=== PATIENT | male | born 1950 | race Hispanic/Latino ===

== ENCOUNTER 2018-02-02 08:30 | Observation (INO) | payer MEDICARE, OTHER ==
[2018-02-01 12:53] VITALS: BP 123/75
[2018-02-02] VITALS (21 sets, daily range): BP systolic 118–164; BP diastolic 56–96
[~2018-02-02] VITALS: Ht 182.9 cm; Wt 116.8 kg
[~2018-02-02 08:30] MED LIST: ASPI-555 PO; BENA10TA10 PO; CARV12.511 PO; ERGO500014 PO; METF-444 PO; PRAV40TA3 PO
[2018-02-02] MEDS: CEFAZOLIN SODIUM 1 GM VIAL IVP SCH ×2 (11:00→12:20)
[2018-02-02] MEDS ORDERED: SODIUM CHLORIDE 0.9% 1000ML 1,000 ML IV ONE (11:05)
[2018-02-02] MEDS ORDERED: MIDAZOLAM HCL 1 MG/ML 2ML VIAL ONE (11:47)
[2018-02-02] MEDS ORDERED: CEFAZOLIN SODIUM 1 GM VIAL ONE (12:07)
[2018-02-02] MEDS ORDERED: GLYCOPYRROLATE 1 MG/5 ML SYRINGE ONE ×2 (12:11→13:27)
[2018-02-02] MEDS ORDERED: DEXAMETHASONE SOD PHOSPHATE 10MG/ML 1ML VIAL ONE (12:11)
[2018-02-02] MEDS ORDERED: ONDANSETRON HCL 4 MG/2 ML VIAL ONE (12:11)
[2018-02-02] MEDS ORDERED: LIDOCAINE PF 2% 5ML ABBOJECT ONE ×2 (12:11→12:12)
[2018-02-02] MEDS ORDERED: NEOSTIGMINE 5MG/5ML SYR IV ONE (12:12)
[2018-02-02] MEDS ORDERED: ROCURONIUM 10MG/1ML SYR 10 MG/ML ML ONE (12:12)
[2018-02-02] MEDS ORDERED: FENTANYL CITRATE PF 50 MCG/1 ML 2ML VIAL ONE ×2 (12:12→12:32)
[2018-02-02] MEDS ORDERED: PROPOFOL 10 MG/ML 20ML VIAL IV ONE (12:12)
[2018-02-02] MEDS ORDERED: METOPROLOL TARTRATE 1 MG/ML 5ML VIAL IV ONE (12:35)
[2018-02-02] MEDS ORDERED: EPHEDRINE SULFATE 50 MG/ML AMPULE ONE (12:41)
[2018-02-02] MEDS ORDERED: MEPERIDINE-PF 25 MG/ML SYG ONE (14:07)
[2018-02-02 14:14] LABS: HEMATOCRIT 48.6 % (42-54)
[2018-02-02] MEDS ORDERED: LACTATED RINGERS 1000ML 1,000 ML IV ONE (15:35)
[2018-02-02] MEDS ORDERED: BISACODYL 10 MG SUPP.RECT RC PRN (16:00)
[2018-02-02] MEDS ORDERED: PROMETHAZINE HCL 25 MG/ML 1ML AMPULE IM PRN (16:00)
[2018-02-02] MEDS ORDERED: MORPHINE SULFATE 10 MG/ML 1ML SYG IM PRN (16:00)
[2018-02-02] MEDS ORDERED: DEXTROSE 5%-LACTATED RINGERS 1,000 ML IV SCH (16:00)
[2018-02-02] MEDS ORDERED: MAGNESIUM HYDROXIDE 30 ML/UDCUP PO PRN (16:00)
[2018-02-02] MEDS ORDERED: MORPHINE SULFATE 10 MG/ML 1ML VIAL ONE (16:07)
[2018-02-02] MEDS ORDERED: MORPHINE SULFATE 5 MG/ML VIAL ONE (16:09)
[2018-02-02] MEDS ORDERED: MORPHINE SULFATE 5 MG/ML VIAL IM PRN (16:11)
[2018-02-02] MEDS ORDERED: MORPHINE SULFATE 4 MG/1ML SYG IV PRN (16:45)
[2018-02-02] MEDS ORDERED: ONDANSETRON HCL 4 MG/2 ML VIAL IVP PRN (16:45)
[2018-02-02] MEDS: CEFAZOLIN 3GM /D5W 100ML 100 ML IV SCH (18:31)
[2018-02-02] MEDS: BENAZEPRIL HCL 10 MG TABLET PO SCH (20:05)
[2018-02-02] MEDS: CARVEDILOL 12.5 MG TABLET PO SCH (20:06)
[2018-02-02] MEDS: ACETAMINOPHEN-CODEINE 300/30MG TAB PO PRN (20:07)
[2018-02-02] MEDS ORDERED: SIMVASTATIN 20 MG TABLET PO SCH (21:00)
[2018-02-03] VITALS: BP 137/67
[2018-02-03 00:41] LABS: HEMATOCRIT 50.6 % (42-54)
[2018-02-03 01:55] LABS: APPEARANCE,URINE Clear (CLEAR); BILIRUBIN,URINE Negative (NEGATIVE); COLOR,URINE Yellow (YELLOW); GLUCOSE, URINE (UA) Negative (NEGATIVE); KETONES,URINE Negative (NEGATIVE); LEUKOCYTE ESTERASE ,URINE Negative (NEGATIVE); NITRATE,URINE Negative (NEGATIVE); OCCULT BLOOD,URINE Negative (NEGATIVE); PH,URINE 5.5 (5.0-8.0); PROTEIN,URINE Negative (NEGATIVE); UROBILINOGEN,URINE 0.2 mg/dL (0.2-1.0)
[2018-02-03] MEDS: CEFAZOLIN 3GM /D5W 100ML 100 ML IV SCH ×2 (02:34→08:43)
[2018-02-03 04:07] VITALS: BP 140/74
[2018-02-03 06:49] LABS: HEMATOCRIT 47.4 % (42-54)
[2018-02-03] MEDS: ACETAMINOPHEN-CODEINE 300/30MG TAB PO PRN (06:59)
[2018-02-03 08:10] VITALS: BP 130/78
[2018-02-03] MEDS: CARVEDILOL 12.5 MG TABLET PO SCH (08:42)
[2018-02-03] MEDS: BENAZEPRIL HCL 10 MG TABLET PO SCH (08:42)
[2018-02-03] MEDS: METFORMIN HCL 500 MG TABLET PO SCH ×2 (08:42→18:07)
[2018-02-03] MEDS ORDERED: ASPIRIN 81MG TAB.CHEW PO SCH (09:00)
[2018-02-03] MEDS ORDERED: TAMSULOSIN HCL 0.4 MG CAP.ER.24H PO SCH (10:30)
[2018-02-03] MEDS: INSULIN HUMULIN R 100 UNIT/ML 3ML SQ SCH ×2 (11:30→16:30)
[2018-02-03 11:39] VITALS: BP 157/89
[2018-02-03] MEDS ORDERED: TRAM50TA4 PO (14:06)
[2018-02-03] MEDS ORDERED: TAMS-1 PO (14:06)
[2018-02-03] MEDS ORDERED: APIX2.5T PO (14:06)
[2018-02-03 16:03] VITALS: BP 135/88
[2018-02-09] MEDS ORDERED: ERGOCALCIFEROL (VITAMIN D2) 50,000 UNIT CAPSULE PO SCH (09:00)
== END 2018-02-03 18:36 | disposition home or self-care (01) ==
LOC: DAHIP 10:32 → 4BH 14:31
DX: S83.232A Complex tear of medial meniscus, current injury, left knee, initial encounter (principal); I11.9 Hypertensive heart disease without heart failure; E78.00 Pure hypercholesterolemia, unspecified; I25.10 Atherosclerotic heart disease of native coronary artery without angina pectoris; M17.12 Unilateral primary osteoarthritis, left knee; M94.20 Chondromalacia, unspecified site; R73.03 Prediabetes; Z79.82 Long term (current) use of aspirin; Z95.1 Presence of aortocoronary bypass graft; X58.XXXA Exposure to other specified factors, initial encounter; Y93.89 Activity, other specified; Y92.89 Other specified places as the place of occurrence of the external cause; Y99.8 Other external cause status
CPT/HCPCS: 27332; 27446; 36415 ×4; 81003; 82948 ×2; 85014 ×4; 85018 ×4; 86850; 86900; 86901; 88304; 88311; 94760; 96365; 96366; 96372 ×2; 96376; 97116 ×2; 97161; A4218; A4450; A4606; A4649; A4930 ×2; A6223; C1713; G0378 ×33; G8978; G8979; G8980 ×2; G8981; G8982; G8983 ×2; J0690 ×3; J1100; J2001 ×2; J2175; J2250; J2270 ×2; J2405 ×2; J2704; J2710; J3010 ×2; J3490 ×4; J7030 ×2; J7120

== ENCOUNTER 2019-10-11 08:23 | Observation (INO) | payer MEDICARE, OTHER ==
[~2019-10-11] VITALS: Ht 167.6 cm; Wt 108.9 kg
[~2019-10-11 08:23] MED LIST changes: +APIX2.5T PO; -ASPI-555 PO; +ASPI-556 PO; -BENA10TA10 PO; +BENA10TA77 PO; +TAMS-1 PO; +TRAM50TA4 PO
[2019-10-11] MEDS ORDERED: ASPIRIN 325 MG TABLET ONE (09:13)
[2019-10-11 09:15] LABS: BASOPHILS % (AUTO) 0.4 % (0.0-5.0); EOSINOPHILS % (AUTO) 0.3 % (0.0-8.0); HEMATOCRIT 51.1 % (42-54); MEAN CORPUSCULAR HEMOGLOBIN 31.6 pg (27.0-33.0); MEAN CORPUSCULAR HGB CONC 33.9 g/dL (32.0-36.0); MEAN CORPUSCULAR VOLUME 93.2 fL (79-99); MONOCYTES % (AUTO) 4.1 % (3.0-13.0); NEUTROPHILS % (AUTO) 76.6 % (40.0-77.0); PLATELET COUNT (AUTO) 165 K/uL (130-400); RED BLOOD CELL COUNT(AUTO) 5.48 MIL/uL (4.50-6.20); RED CELL DISTRIBUTION WIDTH 12.5 % (11.0-15.5)
[2019-10-11 09:26] LABS: INR 0.94 (0.85-1.15); PARTIAL THROMBOPLASTIN TIME 27.1 SEC (26.3-35.5); PROTHROMBIN TIME 10.2 SEC (9.6-11.6)
[2019-10-11] MEDS ORDERED: NITROGLYCERIN 0.4 MG SL TAB SL ONE (09:27)
[2019-10-11 09:38] LABS: CREATININE 1.3 mg/dL (0.5-1.5); POTASSIUM 4.2 mmol/L (3.5-5.1)
[2019-10-11 09:43] LABS: ALBUMIN 3.7 g/dL (3.5-5.0); BILIRUBIN,TOTAL 0.6 mg/dL (0.2-1.0); TOTAL PROTEIN, SERUM 7.8 g/dL (6.0-8.3)
[2019-10-11] MEDS ORDERED: MORPHINE SULFATE 4 MG/1ML SYG ONE (14:12)
[2019-10-11] MEDS ORDERED: ONDANSETRON HCL 4 MG/2 ML VIAL ONE (14:12)
[2019-10-11] MEDS ORDERED: GABA300S PO (16:21)
[2019-10-11] MEDS ORDERED: MULT-729 PO (16:21)
[2019-10-11] MEDS ORDERED: HYDRALAZINE HCL 20 MG/ML VIAL IV PRN (16:30)
[2019-10-11] MEDS ORDERED: ZOLPIDEM TARTRATE 5 MG TAB PO PRN (16:30)
[2019-10-11] MEDS ORDERED: FUROSEMIDE 10 MG/ML 4ML VIAL IV SCH (16:30)
[2019-10-11] MEDS ORDERED: ONDANSETRON HCL 4 MG/2 ML VIAL IVP PRN (16:30)
[2019-10-11] MEDS ORDERED: LABETALOL 20 MG/4 ML DISP.SYRIN IV PRN (16:30)
[2019-10-11] MEDS ORDERED: FAMOTIDINE 20MG TAB 20 MG TAB ONE (20:48)
[2019-10-11] MEDS ORDERED: ENOXAPARIN SODIUM 60 MG/0.6 ML SQ ONE (20:48)
[2019-10-11] MEDS ORDERED: ACETAMINOPHEN 325 MG TAB ONE (20:49)
[2019-10-11] MEDS ORDERED: FUROSEMIDE 10 MG/ML 4ML VIAL ONE (20:49)
[2019-10-11] MEDS ORDERED: ENOXAPARIN SODIUM 60 MG/0.6 ML SQ SCH (21:00)
[2019-10-12 04:16] LABS: ABG BASE EXCESS -2.5 mmol/L (-2.0-3.0); ABG HCO3 21.1 mmol/L (21.0-28.0); ABG OXYGEN SATURATION 94.3 % (95.0-99.0); ABG PCO2 33 mmHg (35-48)
[2019-10-12] MEDS ORDERED: FUROSEMIDE 10 MG/ML 4ML VIAL ONE ×2 (05:17→08:51)
[2019-10-12 06:07] LABS: BASOPHILS % (AUTO) 0.2 % (0.0-5.0); EOSINOPHILS % (AUTO) 0.2 % (0.0-8.0); HEMATOCRIT 50.5 % (42-54); LYMPHOCYTES % (AUTO) 11.5 % (21.0-51.0); MEAN CORPUSCULAR HEMOGLOBIN 31.4 pg (27.0-33.0); MEAN CORPUSCULAR HGB CONC 34.3 g/dL (32.0-36.0); MEAN CORPUSCULAR VOLUME 91.7 fL (79-99); MONOCYTES % (AUTO) 8.9 % (3.0-13.0); NEUTROPHILS % (AUTO) 78.5 % (40.0-77.0); PLATELET COUNT (AUTO) 157 K/uL (130-400); RED BLOOD CELL COUNT(AUTO) 5.51 MIL/uL (4.50-6.20); RED CELL DISTRIBUTION WIDTH 12.5 % (11.0-15.5); WHITE BLOOD COUNT (AUTO) 17.6 K/uL (4.8-10.8)
[2019-10-12 06:43] LABS: B-TYPE NATRIURETIC PEPTIDE 459 pg/mL (0-100)
[2019-10-12 06:49] LABS: ALBUMIN 3.4 g/dL (3.5-5.0); BILIRUBIN,TOTAL 1.8 mg/dL (0.2-1.0); CREATININE 1.1 mg/dL (0.5-1.5); MAGNESIUM 1.6 mg/dL (1.80-2.40); PHOSPHORUS 2.6 mg/dL (2.5-4.9); POTASSIUM 3.4 mmol/L (3.5-5.1); TOTAL PROTEIN, SERUM 7.8 g/dL (6.0-8.3)
[2019-10-12 07:28] LABS: HEMOGLOBIN A1C 8.1 % (4.0-6.0)
[2019-10-12] MEDS ORDERED: ENOXAPARIN SODIUM 60 MG/0.6 ML SQ ONE (08:50)
[2019-10-12] MEDS ORDERED: FAMOTIDINE 20MG TAB 20 MG TAB ONE (08:51)
[2019-10-12] MEDS ORDERED: DEXAMETHASONE SOD PHOSPHATE 4 MG/ML 5ML VIAL ONE (08:52)
[2019-10-12] MEDS ORDERED: FAMOTIDINE 20MG TAB 20 MG TAB PO SCH (09:00)
[2019-10-12] MEDS ORDERED: DEXAMETHASONE SOD PHOSPHATE 4 MG/ML 1ML VIAL IVP SCH (09:00)
== END 2019-10-12 11:19 | disposition left against medical advice (07) ==
LOC: EDH 08:23 → EDHIP 13:00 → DAHIP 15:44 → EDHIP 10-12 01:22
PROVIDERS: ADMIT Internal Medicine; ATTEND Internal Medicine
DX: R07.89 Other chest pain (principal); Z20.828 Contact with and (suspected) exposure to other viral communicable diseases; I25.810 Atherosclerosis of coronary artery bypass graft(s) without angina pectoris; I10 Essential (primary) hypertension; E78.5 Hyperlipidemia, unspecified; E66.9 Obesity, unspecified; E11.9 Type 2 diabetes mellitus without complications; Z79.899 Other long term (current) drug therapy; Z79.01 Long term (current) use of anticoagulants; Z79.82 Long term (current) use of aspirin
CPT/HCPCS: 36415 ×2; 36600; 71045 ×2; 80053 ×2; 82550; 82728; 82803; 83036; 83615; 83735; 83880 ×2; 84100; 84145; 84484 ×4; 85025 ×2; 85378 ×2; 85610; 85730; 93005 ×3; 99285; G0378 ×12; J1100; J1650 ×2; J1940 ×3; J2270; J2405; U0003